=== PATIENT | male | born 1950 | race Caucasian/White ===

== ENCOUNTER 2018-02-25 10:15 | Emergency (ER) | payer MEDICARE ==
[2018-02-25] MEDS ORDERED: ACETAMINOPHEN TAB 500 MG TAB PO STA (11:24)
--- NOTE | 2018-02-25 11:39 | ED ---
Fever HPI - General Chief Complaint: Fever Stated Complaint: Fever/headache Time Seen by Provider: 02/25/18 11:12 Source: patient Mode of arrival: ambulatory Limitations: no limitations - History of Present Illness Initial Comments: 67-year-old male patient presents to the emergency department today for evaluation of fever, chills, and cough. Patient states he has been sick since January 23 with varying symptoms which included a severe right-sided sore throat, right sided ear infection with perforated TM, cough, and swollen glands. Patient states he did complete a course of Augmentin. Currently he is taking azithromycin and Medrol Dosepak. States that his ear pain and sore throat are improved, but his lungs seem worse. He is also reporting right flank and rib pain which she believes may be from coughing. He is experiencing midepigastric discomfort. States that he is eating and drinking without difficulty. States he has had fevers as high as 102.5F. States he has had daily fevers since the end of December. He is reporting night sweats. He denies any rash. Patient denies any recent shortness breath, chest pain, abdominal pain, nausea, vomiting, diarrhea, constipation, back pain, numbness, tingling, dizziness, weakness, hematuria, dysuria, urinary urgency, urinary frequency, headache, visual changes, or any other complaints. - Related Data Home Medications Medication Instructions Recorded Confirmed Azithromycin [Zithromax] 500 mg PO DAILY 02/25/18 02/25/18 Previous Rx's Medication Instructions Recorded Ciprofloxacin HCl [Cipro] 500 mg PO Q12HR #20 tablet 02/25/18 metroNIDAZOLE [Flagyl] 500 mg PO QID #40 tab 02/25/18 predniSONE 50 mg PO DAILY #5 tablet 02/25/18 Allergies Allergy/AdvReac Type Severity Reaction Status Date / Time No Known Allergies Allergy Verified 02/25/18 11:25 Review of Systems ROS Statement: Those systems with pertinent positive or pertinent negative responses have been documented in the HPI. ROS Other: All systems not noted in ROS Statement are negative. Past Medical History Past Medical History: No Reported History History of Any Multi-Drug Resistant Organisms: None Reported Past Surgical History: Appendectomy, Hernia Repair, Joint Replacement, Orthopedic Surgery, Tonsillectomy Past Psychological History: No Psychological Hx Reported Smoking Status: Never smoker Past Alcohol Use History: Rare Past Drug Use History: None Reported General Exam Limitations: no limitations General appearance: alert, in no apparent distress, other (Social well-developed , well-nourished adult male patient in no acute distress. Vital signs upon presentation are temperature 100.1F, pulse 121, respirations 20, blood pressure 122/77, pulse ox 95% on room air.) Eye exam: Present: normal appearance, PERRL, EOMI. Absent: scleral icterus, conjunctival injection, periorbital swelling ENT exam: Present: normal exam, normal oropharynx, mucous membranes moist. Absent: TM's normal bilaterally (Healing right perforated tympanic membrane. No evidence of effusion.) Neck exam: Present: normal inspection, lymphadenopathy (Right anterior cervical) . Absent: tenderness, meningismus Respiratory exam: Present: normal lung sounds bilaterally. Absent: respiratory distress, wheezes, rales, rhonchi, stridor Cardiovascular Exam: Present: regular rate, normal rhythm, normal heart sounds. Absent: systolic murmur, diastolic murmur, rubs, gallop, clicks GI/Abdominal exam: Present: soft, normal bowel sounds. Absent: distended, tenderness, guarding, rebound, rigid Back exam: Present: CVA tenderness (R) Neurological exam: Present: alert, oriented X3, CN II-XII intact Psychiatric exam: Present: normal affect, normal mood Skin exam: Present: warm, dry, intact, normal color. Absent: rash Course Vital Signs 02/25/18 02/25/18 10:49 13:30 Temperature 100.1 F H 99.4 F Pulse Rate 121 H Respiratory 20 Rate Blood Pressure 122/77 O2 Sat by Pulse 95 Oximetry Medical Decision Making - Medical Decision Making 67-year-old male patient presented to the emergency department today for evaluation of a one-month history of various upper respiratory illness, fever, malaise, most recently some midepigastric and right flank discomfort. Physical examination did reveal some mild right upper quadrant and right lower quadrant tenderness. Lungs are clear to auscultation with good air movement. Labs reviewed and did reveal elevated white blood cell count at 11.2. Chest x-ray showed no acute cardiopulmonary process. Given the duration of patient's symptoms and presence of fever and abdominal pain with did perform CT abdomen and pelvis with contrast. Results did show retrocrural lymphadenopathy with lymph nodes measuring up to 3 cm x 1.5 cm. Patient also had presence of focal diverticulitis of the sigmoid colon. I did discuss all findings and results with the patient. We will treat for diverticulitis, patient requests outpatient treatment. I did discuss the enlarged lymph nodes and did instructed to follow-up with his primary care physician to help rule out lymphoma. Patient does have family history of lymphoma. He will be started on cipro and flagyl for diverticulitis. He is instructed to stop taking the azithromycin. We will treat with prednisone for acute bronchitis as he has had persistent cough for four weeks. He is instructed to return immediately for any new, worsening, or concerning symptoms. He verbalizes understanding and agrees this plan - Lab Data Result diagrams: 02/25/18 11:40 02/25/18 11:40 Lab Results 02/25/18 02/25/18 02/25/18 Range/Units 11:40 11:40 11:40 WBC 11.2 H (3.8-10.6) k/uL RBC 4.37 (4.30-5.90) m/uL Hgb 13.8 (13.0-17.5) gm/dL Hct 40.2 (39.0-53.0) % MCV 92.0 D (80.0-100.0) fL MCH 31.7 (25.0-35.0) pg MCHC 34.4 (31.0-37.0) g/dL RDW 12.9 (11.5-15.5) % Plt Count 291 (150-450) k/uL Neutrophils % 77 % Lymphocytes % 12 % Monocytes % 7 % Eosinophils % 1 % Basophils % 0 % Neutrophils # 8.7 H (1.3-7.7) k/uL Lymphocytes # 1.4 (1.0-4.8) k/uL Monocytes # 0.8 (0-1.0) k/uL Eosinophils # 0.1 (0-0.7) k/uL Basophils # 0.0 (0-0.2) k/uL PT (9.0-12.0) sec INR (<1.2) APTT (22.0-30.0) sec Sodium 135 L (137-145) mmol/L Potassium 4.9 (3.5-5.1) mmol/L Chloride 102 (98-107) mmol/L Carbon Dioxide 23 (22-30) mmol/L Anion Gap 10 mmol/L BUN 21 H (9-20) mg/dL Creatinine 0.90 (0.66-1.25) mg/dL Est GFR (CKD-EPI)AfAm >90 (>60 ml/min/1.73 sqM) Est GFR (CKD-EPI)NonAf 89 (>60 ml/min/1.73 sqM) Glucose 91 (74-99) mg/dL Plasma Lactic Acid Ye (0.7-2.0) mmol/L Calcium 9.1 (8.4-10.2) mg/dL Total Bilirubin 0.6 (0.2-1.3) mg/dL AST 49 (17-59) U/L ALT 103 H (21-72) U/L Alkaline Phosphatase 83 (38-126) U/L Total Creatine Kinase 28 L (55-170) U/L CK-MB (CK-2) <0.2 (0.0-2.4) ng/mL CK-MB (CK-2) Rel Index Troponin I <0.012 (0.000-0.034) ng/mL Total Protein 6.9 (6.3-8.2) g/dL Albumin 3.7 (3.5-5.0) g/dL Urine Color Urine Appearance (Clear) Urine pH (5.0-8.0) Ur Specific Wilson (1.001-1.035) Urine Protein (Negative) Urine Glucose (UA) (Negative) Urine Ketones (Negative) Urine Blood (Negative) Urine Nitrite (Negative) Urine Bilirubin (Negative) Urine Urobilinogen (<2.0) mg/dL Ur Leukocyte Esterase (Negative) Influenza Type A RNA (Not Detectd) Influenza Type B (PCR) (Not Detectd) 02/25/18 02/25/18 02/25/18 Range/Units 11:40 11:40 12:10 WBC (3.8-10.6) k/uL RBC (4.30-5.90) m/uL Hgb (13.0-17.5) gm/dL Hct (39.0-53.0) % MCV (80.0-100.0) fL MCH (25.0-35.0) pg MCHC (31.0-37.0) g/dL RDW (11.5-15.5) % Plt Count (150-450) k/uL Neutrophils % % Lymphocytes % % Monocytes % % Eosinophils % % Basophils % % Neutrophils # (1.3-7.7) k/uL Lymphocytes # (1.0-4.8) k/uL Monocytes # (0-1.0) k/uL Eosinophils # (0-0.7) k/uL Basophils # (0-0.2) k/uL PT 10.1 (9.0-12.0) sec INR 0.9 (<1.2) APTT 26.0 (22.0-30.0) sec Sodium (137-145) mmol/L Potassium (3.5-5.1) mmol/L Chloride (98-107) mmol/L Carbon Dioxide (22-30) mmol/L Anion Gap mmol/L BUN (9-20) mg/dL Creatinine (0.66-1.25) mg/dL Est GFR (CKD-EPI)AfAm (>60 ml/min/1.73 sqM) Est GFR (CKD-EPI)NonAf (>60 ml/min/1.73 sqM) Glucose (74-99) mg/dL Plasma Lactic Acid Ye 1.2 (0.7-2.0) mmol/L Calcium (8.4-10.2) mg/dL Total Bilirubin (0.2-1.3) mg/dL AST (17-59) U/L ALT (21-72) U/L Alkaline Phosphatase (38-126) U/L Total Creatine Kinase (55-170) U/L CK-MB (CK-2) (0.0-2.4) ng/mL CK-MB (CK-2) Rel Index Troponin I (0.000-0.034) ng/mL Total Protein (6.3-8.2) g/dL Albumin (3.5-5.0) g/dL Urine Color Urine Appearance (Clear) Urine pH (5.0-8.0) Ur Specific Wilson (1.001-1.035) Urine Protein (Negative) Urine Glucose (UA) (Negative) Urine Ketones (Negative) Urine Blood (Negative) Urine Nitrite (Negative) Urine Bilirubin (Negative) Urine Urobilinogen (<2.0) mg/dL Ur Leukocyte Esterase (Negative) Influenza Type A RNA Not Detected (Not Detectd) Influenza Type B (PCR) Not Detected (Not Detectd) 02/25/18 Range/Units 12:45 WBC (3.8-10.6) k/uL RBC (4.30-5.90) m/uL Hgb (13.0-17.5) gm/dL Hct (39.0-53.0) % MCV (80.0-100.0) fL MCH (25.0-35.0) pg MCHC (31.0-37.0) g/dL RDW (11.5-15.5) % Plt Count (150-450) k/uL Neutrophils % % Lymphocytes % % Monocytes % % Eosinophils % % Basophils % % Neutrophils # (1.3-7.7) k/uL Lymphocytes # (1.0-4.8) k/uL Monocytes # (0-1.0) k/uL Eosinophils # (0-0.7) k/uL Basophils # (0-0.2) k/uL PT (9.0-12.0) sec INR (<1.2) APTT (22.0-30.0) sec Sodium (137-145) mmol/L Potassium (3.5-5.1) mmol/L Chloride (98-107) mmol/L Carbon Dioxide (22-30) mmol/L Anion Gap mmol/L BUN (9-20) mg/dL Creatinine (0.66-1.25) mg/dL Est GFR (CKD-EPI)AfAm (>60 ml/min/1.73 sqM) Est GFR (CKD-EPI)NonAf (>60 ml/min/1.73 sqM) Glucose (74-99) mg/dL Plasma Lactic Acid Ye (0.7-2.0) mmol/L Calcium (8.4-10.2) mg/dL Total Bilirubin (0.2-1.3) mg/dL AST (17-59) U/L ALT (21-72) U/L Alkaline Phosphatase (38-126) U/L Total Creatine Kinase (55-170) U/L CK-MB (CK-2) (0.0-2.4) ng/mL CK-MB (CK-2) Rel Index Troponin I (0.000-0.034) ng/mL Total Protein (6.3-8.2) g/dL Albumin (3.5-5.0) g/dL Urine Color Yellow Urine Appearance Clear (Clear) Urine pH 7.0 (5.0-8.0) Ur Specific Wilson 1.015 (1.001-1.035) Urine Protein Negative (Negative) Urine Glucose (UA) Negative (Negative) Urine Ketones Negative (Negative) Urine Blood Negative (Negative) Urine Nitrite Negative (Negative) Urine Bilirubin Negative (Negative) Urine Urobilinogen <2.0 (<2.0) mg/dL Ur Leukocyte Esterase Negative (Negative) Influenza Type A RNA (Not Detectd) Influenza Type B (PCR) (Not Detectd) - EKG Data -: EKG Interpreted by Ma EKG Comments: EKG obtained at 11:30 shows sinus tachycardia with a ventricular rate of 106, MN interval 164, QRS duration 100, QT 336, QTc 446. No evidence of ST elevation or depression. - Radiology Data Radiology results: report reviewed, image reviewed Two-view x-ray of the chest is obtained. Report is reviewed in its entirety. Impression by Dr. Meeks shows no evidence for acute pulmonary disease per CT abdomen and pelvis with contrast was obtained. Report was reviewed in its entirety. Impression by Dr. Arriola shows some mild inflammatory changes in the proximal sigmoid colon suggestive of focal diverticulitis or colitis. No abscess. Retrocrural lymphadenopathy. Lymphoma as possible. There is minimal basilar pleural thickening and atelectasis. Disposition Clinical Impression: Diverticulitis, Mediastinal lymphadenopathy, Acute bronchitis Disposition: HOME SELF-CARE Condition: Good Instructions: Diverticulitis (ED), Fever in Adults (ED), Lymphadenopathy (ED), Acute Bronchitis (ED) Additional Instructions: Complete all medications as directed. Stop taking azithromycin. Follow up with your primary care physician for further evaluation of your retrocrural lymphadenopathy, discuss evaluation for lymphoma. Return to the emergency department for new, worsening, or concerning symptoms. Prescriptions: Ciprofloxacin HCl [Cipro] 500 mg PO Q12HR #20 tablet metroNIDAZOLE [Flagyl] 500 mg PO QID #40 tab predniSONE 50 mg PO DAILY #5 tablet Is patient prescribed a controlled substance at d/c from ED?: No Referrals: Tima Addison DO [Primary Care Provider] - 1-2 days Time of Disposition: 14:48
[2018-02-25 11:56] LABS: Basophils % (A) 0 %; Eosinophils # (A) 0.1 k/uL (0-0.7); Eosinophils % (A) 1 %; HCT 40.2 % (39.0-53.0); HGB 13.8 gm/dL (13.0-17.5); Lymphocytes # (A) 1.4 k/uL (1.0-4.8); Lymphocytes % (A) 12 %; MCH 31.7 pg (25.0-35.0); MCHC 34.4 g/dL (31.0-37.0); Mean Platelet Volume 6.6; Monocytes # (A) 0.8 k/uL (0-1.0); Monocytes % (A) 7 %; Neutrophils # (A) 8.7 k/uL (1.3-7.7); Neutrophils % (A) 77 %; Platelet Count 291 k/uL (150-450); RBC 4.37 m/uL (4.30-5.90); RDW 12.9 % (11.5-15.5); WBC 11.2 k/uL (3.8-10.6)
[2018-02-25] MEDS: SODIUM CHLORIDE 0.9% 500 ML 500 ML IV SCH ×3 (12:04→14:19)
[2018-02-25 12:07] LABS: ALT 103 U/L (21-72); AST 49 U/L (17-59); Albumin 3.7 g/dL (3.5-5.0); Alkaline Phosphatase 83 U/L (38-126); Anion Gap 10 mmol/L; Blood Urea Nitrogen 21 mg/dL (9-20); Calcium 9.1 mg/dL (8.4-10.2); Carbon Dioxide 23 mmol/L (22-30); Chloride 102 mmol/L (98-107); Glucose 91 mg/dL (74-99); Potassium 4.9 mmol/L (3.5-5.1); Sodium 135 mmol/L (137-145); Total Bilirubin 0.6 mg/dL (0.2-1.3); Total Protein 6.9 g/dL (6.3-8.2)
[2018-02-25 12:15] LABS: Creatine Kinase 28 U/L (55-170)
[2018-02-25 12:20] LABS: INR 0.9 (<1.2); Prothrombin Time 10.1 sec (9.0-12.0)
[2018-02-25 12:27] LABS: Creatine Kinase MB <0.2 ng/mL (0.0-2.4); Troponin I <0.012 ng/mL (0.000-0.034)
--- NOTE | 2018-02-25 12:53 | XR ---
EXAMINATION TYPE: XR chest 2V DATE OF EXAM: 02/25/2018 COMPARISON: NONE HISTORY: Shortness of breath TECHNIQUE: Frontal and lateral views of the chest are obtained. FINDINGS: Scattered senescent parenchymal changes noted. No evidence for infiltrate. No evidence for atelectasis. Heart size is stable. Mediastinal structures are stable and grossly unremarkable. No evidence for hilar prominence. Degenerative changes dorsal spine. IMPRESSION: 1. No evidence for acute pulmonary disease.
[2018-02-25 13:16] LABS: Appearance,Urine Clear (Clear); Bilirubin,Urine Negative (Negative); Blood,Urine Negative (Negative); Color,Urine Yellow; Glucose,Urine (UA) Negative (Negative); Ketones,Urine Negative (Negative); Leukocyte Esterase,Urine Negative (Negative); Nitrite,Urine Negative (Negative); Protein,Urine Negative (Negative); Specific Gravity,Urine 1.015 (1.001-1.035); Urobilinogen,Urine <2.0 mg/dL (<2.0)
[2018-02-25] MEDS ORDERED: KETOROLAC 30 MG/ML 1 ML VIAL IVP STA (13:49)
[2018-02-25] MEDS ORDERED: ONDANSETRON 4 MG/2 ML VIAL IVP STA (13:49)
--- NOTE | 2018-02-25 14:26 | CT ---
EXAMINATION TYPE: CT abdomen pelvis w con DATE OF EXAM: 02/25/2018 COMPARISON: None HISTORY: Fever, Lt sided pain CT DLP: 898.3 mGycm Automated exposure control for dose reduction was used. TECHNIQUE: Helical acquisition of images was performed from the lung bases through the pelvis. CONTRAST: Performed without Oral Contrast and with IV Contrast, patient injected with 100 mL of Isovue 300. FINDINGS: There is some mild linear infiltrate and atelectasis at the right posterior lung base. There is mild bilateral basilar pleural thickening. There are enlarged retrocrural lymph nodes measure up to 3 x 1.5 cm. There is small hiatal hernia. Th e remainder of the stomach appears normal. Liver spleen pancreas gallbladder appear normal. Bile ducts are not dilated. There is no adrenal mass. Kidneys show satisfactory contrast opacification. There is no hydronephrosi s. The ureters are not dilated. There is a few abdominal para-aortic lymph nodes measure up to 1 cm. Abdominal aorta is atheromatous. Bladder distends smoothly. There is no free fluid in the pelvis. There is no inguinal hernia. There i s mild fat stranding around the mid sigmoid colon. There is sigmoid colon mild wall thickening. There are a few diverticula. There is no evidence of bowel obstruction. There are minimal spondylotic changes in the lumbar spine. I see no focal bony destructive process. There is no mesenteric adenopathy. IMPRESSION: THERE ARE SOME MILD INFLAMMATORY CHANGES IN THE PROXIMAL SIGMOID COLON SUGGESTIVE OF FOCAL DIVERTICUL ITIS OR COLITIS. NO ABSCESS. RETROCRURAL LYMPHADENOPATHY. LYMPHOMA IS POSSIBLE. THERE IS MINIMAL BASILAR PLEURAL THICKENING AND AT ELECTASIS.
[2018-02-25] MEDS ORDERED: methylPREDNISolone SOD SUCCI 125 MG/2 ML VIAL IV STA (14:46)
[2018-02-25 15:35] VITALS: BP 122/68; PULSE 73; RESP 18; TEMP 97.6
== END 2018-02-25 15:25 | disposition home or self-care (01) ==
LOC: EC 10:15
DX: J20.9 Acute bronchitis, unspecified (principal); K57.32 Diverticulitis of large intestine without perforation or abscess without bleeding; R59.0 Localized enlarged lymph nodes; J98.11 Atelectasis; R91.8 Other nonspecific abnormal finding of lung field; R00.0 Tachycardia, unspecified; D72.829 Elevated white blood cell count, unspecified; H72.91 Unspecified perforation of tympanic membrane, right ear; R61 Generalized hyperhidrosis; Z90.49 Acquired absence of other specified parts of digestive tract; Z90.89 Acquired absence of other organs
CPT/HCPCS: 36415; 93005; 80053; 82550; 82553; 83605; 84484; 85025; 85610; 85730; 81003; 87040; 87086; 87502; 71046; 74177; 99284; 96374; 96375 ×2; 96361 ×3; J2930; J2405; J1885; Q9967

== ENCOUNTER → 2018-03-07 | Outpatient (CLI) | payer MEDICARE ==
--- NOTE | 2018-03-07 09:41 | CT ---
EXAMINATION TYPE: CT soft tissue neck wo con DATE OF EXAM: 03/07/2018 HISTORY: enlarged lymph nodes COMPARISON: NONE CT DLP: 637 mGycm. Automated Exposure Control for Dose Reduction was Utilized. TECHNIQUE: CT scan of the neck is performed without IV contrast, axial images are obtained, coronal and sagittal reformatted images are reviewed. FINDINGS: Evaluation noted suboptimal due to lack of IV contrast which limits evaluation for mucosal lesions as well as subcentimeter neck adenopathy. Airway: Nasopharyngeal airway is patent. There is prominence of the hard palate noted. There are nume miguel crowns and root canals of the maxillary mandibular teeth causing streak artifact limiting evalua tion at level of the oropharynx. Region of epiglottis and vallecula appears within normal limits. Hyp opharyngeal airway appears patent. Thyroid gland is felt within normal limits. Visualized lungs are c lear, to tiny nodules posterior right upper lung axial image 73 measures under 4 mm in size. Parotid/submandibular glands: No gross abnormality seen. Carotid/Vascular Structures: Mild to moderate calcified plaque bilateral carotid bulbs is identified extending into proximal internal carotid arteries. Osseous Structures: There is mild to moderate disc space narrowing and spurring C5-C6 and C6-C7 level s Other: There is 1.3 cm mucous retention cyst or polyp in the anterior inferior right maxillary sinus. There are scattered subcentimeter lymph nodes throughout the neck bilaterally. No definitive greater than 1 cm neck adenopathy is seen. IMPRESSION: Slightly suboptimal without IV contrast, no suspicious mass or greater than 1 cm adenopat hy is clearly identified.
== END ==
LOC: RADCTMAIN 06:53
PROVIDERS: ATTEND Family Medicine
DX: R59.0 Localized enlarged lymph nodes (principal)
CPT/HCPCS: 70490

== ENCOUNTER → 2018-03-16 | Outpatient (CLI) | payer MEDICARE ==
[2018-03-16 09:44] LABS: Blood Urea Nitrogen 9 mg/dL (9-20)
--- NOTE | 2018-03-16 10:26 | CT ---
EXAMINATION TYPE: CT angio chest DATE OF EXAM: 03/16/2018 COMPARISON: None HISTORY: SOB, lymphadenopathy CT DLP: 348.2 mGycm CONTRAST: CT chest with contrast and 3D reconstruction with MIP imaging is performed with IV Contrast, patient injected with 100 mL of Isovue 370. Contrast-enhanced CT of the chest was performed through the course of the pulmonary arteries with odilia g and mediastinal window settings submitted. 3D reconstruction with MIP imaging was also performed. PULMONARY ARTERIES: The pulmonary arteries and their major tributaries are patent. I do not see valentina dence for sizable filling defect to suggest pulmonary embolic process. LUNGS: Basilar atelectasis and/or infiltrates with small effusions. Fluid noted within the minor fiss ure. MEDIASTINUM: Thoracic aorta is of normal caliber,however, evaluation is limited given timing of the contrast bolus. If there is concern for thoracic aortic pathology consider ALFREDO. Correlate clinicall y . The heart is not enlarged. No evidence for mediastinal mass. No mediastinal lymph nodes greater than 1cm. HILAR STRUCTURES: No evidence for mass. No hilar lymph nodes greater than 1 cm. UPPER ABDOMEN: No significant abnormality is seen. IMPRESSION: 1. No evidence for Pulmonary embolism at this time. 2. Basilar atelectasis and/or infiltrates with small effusions. 3. No sizable adenopathy greater than 1 cm.
== END | disposition home or self-care (01) ==
LOC: RADCTMAIN 09:17
PROVIDERS: ATTEND Internal Medicine Hematology & Oncology
DX: R59.0 Localized enlarged lymph nodes (principal)
CPT/HCPCS: 82565; 84520; 71275; 36415; Q9967

== ENCOUNTER → 2018-04-13 | Outpatient (CLI) | payer MEDICARE ==
[2018-04-13 08:27] LABS: Blood Urea Nitrogen 27 mg/dL (9-20)
--- NOTE | 2018-04-13 14:12 | CT ---
EXAMINATION TYPE: CT angio abdomen DATE OF EXAM: 04/13/2018 9:49 AM COMPARISON: CT abdomen pelvis 02/25/2018 HISTORY: Microscopic polyangiittis CT DLP: 266.3 mGycm Automated exposure control for dose reduction was used. TECHNIQUE: Performed with IV Contrast, patient injected with 100 mL of Isovue 370. TECHNIQUE: Axial images 5 mm thick sections. Imaging was performed during the arterial phase.. FINDINGS: Limited CT sections are obtained the lung bases which are clear CT ABDOMEN: Liver and spleen and normal density at this phase of contrast without masses or cysts. Th e pancreas is unremarkable. Gallbladder is normal. Adrenal glands are normal. Kidneys are normal with out masses cysts or hydronephrosis. There is symmetrical cortical opacification. The aorta tapers normally through its visualized course. There is some vascular calcification within the aorta. Vena cava is unremarkable. CT PELVIS:, Iliac vessels are normal. Internal and external iliac vessels are normal. Common femoral arteries are normal. Multiple diverticuli are within the sigmoid colon. The appendix is not identifie d. Small bowel loops are unremarkable without contrast. Some plaquing is at the proximal celiac arter y and some narrowing at the origin may be present. Superior mesenteric artery appears unremarkable. Degenerative disc changes are present L5-S1. Narrowing of disc height is present L3-4 L4-5. Sacroilia c joint degenerative changes are present. IMPRESSION: 1. SOME NARROWING OF THE PROXIMAL CELIAC AXIS MAY BE PRESENT AT ITS ORIGIN. 2. CT ABDOMEN PELVIS OTHERWISE APPEARS UNREMARKABLE.
== END | disposition home or self-care (01) ==
LOC: RADCTMAIN 07:47
PROVIDERS: ATTEND Internal Medicine Rheumatology
DX: M31.7 Microscopic polyangiitis (principal)
CPT/HCPCS: 82565; 84520; 74175; 36415; Q9967

== ENCOUNTER → 2019-07-18 | Outpatient (CLI) | payer MEDICARE ==
[2019-07-19 11:27] LABS: Basophils # (A) 0.1 k/uL (0-0.2); Basophils % (A) 1 %; Eosinophils # (A) 0.1 k/uL (0-0.7); Eosinophils % (A) 1 %; HCT 46.9 % (39.0-53.0); Hypochromasia Slight; Lymphocytes # (A) 1.6 k/uL (1.0-4.8); Lymphocytes % (A) 13 %; MCH 31.5 pg (25.0-35.0); MCV 98.3 fL (80.0-100.0); Macrocytosis Slight; Mean Platelet Volume 9.1; Monocytes # (A) 1.1 k/uL (0-1.0); Monocytes % (A) 9 %; Neutrophils # (A) 9.1 k/uL (1.3-7.7); Neutrophils % (A) 75 %; Platelet Count 310 k/uL (150-450); RBC 4.77 m/uL (4.30-5.90); RDW 15.7 % (11.5-15.5); WBC 12.1 k/uL (3.8-10.6)
[2019-07-19 14:36] LABS: African American GFR (CKD) 72.1 (60.0-200.0); Albumin 4.5 g/dL (3.80-4.90); Albumin/Globulin Ratio 1.8 (1.60-3.17); Bilirubin, Conjugated 0.2 mg/dL (0.20-0.40); Bilirubin,Unconjugated 0.4 mg/dL; Globulin 2.5 g/dL (1.6-3.3); Non-African American GFR(CKD) 62.2 (60.0-200.0); Total Bilirubin 0.6 mg/dL (0.3-1.2)
== END | disposition home or self-care (01) ==
LOC: LABWHC1 11:55
PROVIDERS: ATTEND Internal Medicine
DX: R74.0 Nonspecific elevation of levels of transaminase and lactic acid dehydrogenase [LDH] (principal); Z51.81 Encounter for therapeutic drug level monitoring
CPT/HCPCS: 36415; 80076; 82565; 85025; 85652; 86140

== ENCOUNTER → 2020-10-05 | Outpatient (CLI) | payer MEDICARE ==
[2020-10-05 19:37] LABS: Basophils # (A) 0.05 X 10*3/uL (0.00-0.10); Basophils % (A) 0.6 %; Eosinophils # (A) 0.08 X 10*3/uL (0.04-0.35); Eosinophils % (A) 0.9 %; HCT 45.1 % (39.6-50.0); HGB 14.7 g/dL (13.0-17.0); Lymphocytes % (A) 28.2 %; MCH 32.9 pg (27.0-32.0); MCHC 32.6 g/dL (32.0-37.0); MCV 100.9 fL (80.0-97.0); Mean Platelet Volume 9.4 fL (9.5-12.2); Monocytes # (A) 0.68 X 10*3/uL (0.20-1.00); Neutrophils # (A) 5.28 X 10*3/uL (1.80-7.70); Neutrophils % (A) 62.1 %; Platelet Count 255 X 10*3/uL (140-440); RBC 4.47 X 10*6/uL (4.40-5.60); RDW 14.2 % (11.5-14.5); WBC 8.51 X 10*3/uL (4.50-10.00)
[2020-10-05 19:56] LABS: ALT 32 U/L (10-49); AST 24 U/L (14-35); African American GFR (CKD) 89.2 (60.0-200.0); Alkaline Phosphatase 80 U/L (41-126); Bilirubin, Conjugated <0.20 mg/dL (0.20-0.40); C Reactive Protein <0.4 mg/dL (0.0-0.8); Globulin 2.2 g/dL (1.6-3.3); Total Bilirubin 0.5 mg/dL (0.3-1.2); Total Protein 6.6 g/dL (6.2-8.2)
[2020-10-05 20:14] LABS: Erythrocyte Sedimentation Rate 5 mm/Hr (0-20)
== END | disposition home or self-care (01) ==
LOC: LABWHC1 12:44
PROVIDERS: ATTEND Internal Medicine
DX: Z51.81 Encounter for therapeutic drug level monitoring (principal); M31.6 Other giant cell arteritis
CPT/HCPCS: 36415; 80076; 82565; 85025; 85652; 86140

== ENCOUNTER → 2021-05-31 | Outpatient (CLI) | payer MEDICARE ==
[2021-05-31 14:25] LABS: Basophils # (A) 0.04 X 10*3/uL (0.00-0.10); Basophils % (A) 0.6 %; Eosinophils # (A) 0.03 X 10*3/uL (0.04-0.35); Eosinophils % (A) 0.4 %; HCT 46.9 % (39.6-50.0); HGB 15.6 g/dL (13.0-17.0); Immature Grans, Automated 0.3 %; Lymphocytes # (A) 2.41 X 10*3/uL (0.90-5.00); Lymphocytes % (A) 35.5 %; MCH 32.8 pg (27.0-32.0); MCHC 33.3 g/dL (32.0-37.0); MCV 98.5 fL (80.0-97.0); Mean Platelet Volume 9.4 fL (9.5-12.2); Monocytes # (A) 0.56 X 10*3/uL (0.20-1.00); Monocytes % (A) 8.3 %; NRBC Per 100 WBC 0 /100 WBCS (0.0-0.0); Neutrophils # (A) 3.72 X 10*3/uL (1.80-7.70); Neutrophils % (A) 54.9 %; Platelet Count 261 X 10*3/uL (140-440); RBC 4.76 X 10*6/uL (4.40-5.60); RDW 13.4 % (11.5-14.5); WBC 6.78 X 10*3/uL (4.50-10.00)
[2021-05-31 14:31] LABS: ALT 21 U/L (10-49); AST 21 U/L (14-35); Albumin 4.5 g/dL (3.8-4.9); Alkaline Phosphatase 63 U/L (41-126); Bilirubin, Conjugated <0.20 mg/dL (0.20-0.40); Globulin 2.5 g/dL (1.6-3.3); Non-African American GFR(CKD) 68.1 (60.0-200.0)
[2021-05-31 15:21] LABS: Erythrocyte Sedimentation Rate 8 mm/Hr (0-20)
[2021-05-31 15:57] LABS: C Reactive Protein <0.30 mg/dL (0.00-0.80)
== END | disposition home or self-care (01) ==
LOC: LABWHC1 09:42
PROVIDERS: ATTEND Internal Medicine
DX: Z51.81 Encounter for therapeutic drug level monitoring (principal); M31.6 Other giant cell arteritis; R79.82 Elevated C-reactive protein (CRP); R70.0 Elevated erythrocyte sedimentation rate
CPT/HCPCS: 36415; 80076; 82565; 85025; 85652; 86140

== ENCOUNTER → 2021-08-31 | Outpatient (CLI) | payer MEDICARE ==
[2021-08-31 22:22] LABS: Basophils # (A) 0.04 X 10*3/uL (0.00-0.10); Basophils % (A) 0.6 %; Eosinophils # (A) 0.06 X 10*3/uL (0.04-0.35); Eosinophils % (A) 0.9 %; HCT 44.8 % (39.6-50.0); HGB 14.3 g/dL (13.0-17.0); Immature Grans, Automated 0.3 %; Lymphocytes # (A) 2.58 X 10*3/uL (0.90-5.00); Lymphocytes % (A) 37.7 %; MCH 31.9 pg (27.0-32.0); MCHC 31.9 g/dL (32.0-37.0); Mean Platelet Volume 9.7 fL (9.5-12.2); Monocytes # (A) 0.55 X 10*3/uL (0.20-1.00); NRBC Per 100 WBC 0 /100 WBCS (0.0-0.0); Neutrophils % (A) 52.5 %; Platelet Count 234 X 10*3/uL (140-440); RBC 4.48 X 10*6/uL (4.40-5.60); RDW 14.8 % (11.5-14.5); WBC 6.85 X 10*3/uL (4.50-10.00)
[2021-08-31 22:56] LABS: Erythrocyte Sedimentation Rate 7 mm/Hr (0-20)
[2021-08-31 23:38] LABS: ALT 21 U/L (10-49); AST 17 U/L (14-35); African American GFR (CKD) 87.6 (60.0-200.0); Albumin 4.6 g/dL (3.8-4.9); Albumin/Globulin Ratio 2.44 (1.60-3.17); Alkaline Phosphatase 69 U/L (41-126); Bilirubin, Conjugated <0.20 mg/dL (0.20-0.40); C Reactive Protein <0.30 mg/dL (0.00-0.80); Globulin 1.9 g/dL (1.6-3.3); Non-African American GFR(CKD) 75.5 (60.0-200.0); Total Protein 6.5 g/dL (6.2-8.2)
== END | disposition home or self-care (01) ==
LOC: LABWHC1 14:36
PROVIDERS: ATTEND Internal Medicine
DX: Z51.81 Encounter for therapeutic drug level monitoring (principal); M31.6 Other giant cell arteritis; R79.82 Elevated C-reactive protein (CRP); R70.0 Elevated erythrocyte sedimentation rate
CPT/HCPCS: 36415; 80076; 82565; 85025; 85652; 86140

== ENCOUNTER → 2021-12-03 | Outpatient (CLI) | payer MEDICARE ==
[2021-12-03 18:09] LABS: ALT 24 U/L (10-49); AST 18 U/L (14-35); African American GFR (CKD) 88.6 (60.0-200.0); Albumin 4.3 g/dL (3.8-4.9); Albumin/Globulin Ratio 1.65 (1.60-3.17); Alkaline Phosphatase 70 U/L (41-126); Bilirubin, Conjugated <0.20 mg/dL (0.20-0.40); C Reactive Protein <0.30 mg/dL (0.00-0.80); Globulin 2.6 g/dL (1.6-3.3); Non-African American GFR(CKD) 76.5 (60.0-200.0); Total Protein 6.9 g/dL (6.2-8.2)
[2021-12-03 18:20] LABS: Basophils # (A) 0.04 X 10*3/uL (0.00-0.10); Basophils % (A) 0.6 %; Eosinophils # (A) 0.04 X 10*3/uL (0.04-0.35); Eosinophils % (A) 0.6 %; HCT 43.9 % (39.6-50.0); HGB 14.9 g/dL (13.0-17.0); Immature Grans, Automated 0.3 %; Lymphocytes # (A) 2.59 X 10*3/uL (0.90-5.00); Lymphocytes % (A) 41.6 %; MCH 33.1 pg (27.0-32.0); MCHC 33.9 g/dL (32.0-37.0); MCV 97.6 fL (80.0-97.0); Mean Platelet Volume 9.2 fL (9.5-12.2); Monocytes # (A) 0.64 X 10*3/uL (0.20-1.00); Monocytes % (A) 10.3 %; NRBC Per 100 WBC 0 /100 WBCS (0.0-0.0); Neutrophils # (A) 2.89 X 10*3/uL (1.80-7.70); Neutrophils % (A) 46.6 %; Platelet Count 238 X 10*3/uL (140-440); RDW 14.2 % (11.5-14.5); WBC 6.22 X 10*3/uL (4.50-10.00)
[2021-12-03 19:16] LABS: Erythrocyte Sedimentation Rate 5 mm/Hr (0-20)
== END | disposition home or self-care (01) ==
LOC: LABWHC1 12:00
PROVIDERS: ATTEND Internal Medicine
DX: Z51.81 Encounter for therapeutic drug level monitoring (principal); M31.6 Other giant cell arteritis; R70.0 Elevated erythrocyte sedimentation rate; R79.82 Elevated C-reactive protein (CRP)
CPT/HCPCS: 36415; 80076; 82565; 85025; 85652; 86140

== ENCOUNTER → 2023-06-16 | Outpatient (CLI) | payer MEDICARE | END | disposition home or self-care (01) | LOC: LABWHC1 07:54 | PROVIDERS: ATTEND Internal Medicine | DX: M31.6 Other giant cell arteritis (principal); R70.0 Elevated erythrocyte sedimentation rate; R79.82 Elevated C-reactive protein (CRP) | CPT/HCPCS: 36415; 85652; 86140 ==